=== PATIENT | male | born 2000 | race Asian ===

== ENCOUNTER 2021-01-26 10:43 | Inpatient (IN) ==
[2021-01-26 11:36] LABS: ABS Basophils 0.1 10^3/ul (0-0.2); ABS Eosinophils 0.1 10^3/ul (0-0.6); ABS Lymphocytes 2.6 10^3/ul (1.0-4.8); ABS Monocytes 0.4 10^3/ul (0-0.8); ABS Neutrophils 2.4 10^3/ul (1.5-7.7); Eosinophil % 1.9 %; Hematocrit 44 % (42-52); Hemoglobin 14.9 g/dL (14.0-18.0); Mean Corpuscular HGB Conc 34 g/dL (31-36); Mean Corpuscular Hemoglobin 27 pg (27-31); Mean Corpuscular Volume 79 fL (80-94); Mean Platelet Volume 8.3 fL (7.4-10.4); Platelet Count 228 10^3/uL (150-450); Red Blood Count 5.57 10^6 /uL (4.18-5.48); Red Cell Distribution Width 14 % (10-15); White Blood Count 5.5 10^3/uL (3.5-10.8)
[2021-01-26 11:52] LABS: ALT 13 U/L (7-52); Albumin 5.1 g/dL (3.2-5.2); Albumin/Globulin Ratio 2.1 (1-3); Alkaline Phosphatase 43 U/L (35-149); Blood Urea Nitrogen 13 mg/dL (6-24); CO2 Carbon Dioxide 29 mmol/L (22-32); Calcium 9.6 mg/dL (8.6-10.3); Chloride 103 mmol/L (101-111); Globulin 2.4 g/dL (2-4); Glucose 92 mg/dL (70-100); Sodium 138 mmol/L (135-145); Total Protein 7.5 g/dL (6.4-8.9)
[2021-01-26 12:03] LABS: Alcohol, S < 13 mg/dL (<13); Salicylate < 2.50 mg/dL (<30)
[2021-01-26 12:06] LABS: Acetaminophen < 15 mcg/mL
[2021-01-26 12:08] LABS: Urine Appearance Clear; Urine Bilirubin Negative (Negative); Urine Blood Negative (Negative); Urine Color Yellow; Urine Glucose Negative (Negative); Urine Ketones Negative (Negative); Urine Nitrite Negative (Negative); Urine Protein Negative (Negative); Urine Specific Gravity 1.027 (1.002-1.030); Urine Urobilinogen Negative (Negative)
[2021-01-26 12:18] LABS: TSH Ultra Thyroid Stim Horm 2.53 mcIU/mL (0.34-5.60)
[2021-01-26 12:29] LABS: Urine Benzodiazepine Screen None Detected (None Detect); Urine Cannabinoids Screen None Detected (None Detect); Urine Opiates Screen None Detected (None Detect)
[2021-01-26 12:53] LABS: Anion Gap 6 mmol/L (2-11); Potassium 4.2 mmol/L (3.5-5.0)
[2021-01-26 13:04] LABS: AST 18 U/L (13-39)
[2021-01-26 19:31] LABS: Rapid COVID-19 Molecular Undetected (Undetected)
[2021-01-26] MEDS ORDERED: Al Hydrox/Mg Hydrox/Simet LIQ 30 ML UDC PO PRN (21:59)
[2021-01-27 08:42] LABS: HDL Cholesterol 61.1 mg/dL
[2021-01-27] MEDS: Vitamin THERAPEUTIC TAB PO SCH (09:09)
[2021-01-28] MEDS ORDERED: Venlafaxine XR 75 mg ONE (08:36)
[2021-01-28] MEDS: Vitamin THERAPEUTIC TAB PO SCH (08:46)
[2021-01-28] MEDS ORDERED: Flu vaccine *QUAD* 2021-22* 0.5 ML SYRINGE IM ONE (09:00)
[2021-01-28] MEDS: Venlafaxine XR 75 mg PO SCH (09:05)
[2021-01-29] MEDS: Venlafaxine XR 75 mg PO SCH (09:17)
[2021-01-29] MEDS: Vitamin THERAPEUTIC TAB PO SCH (09:18)
[2021-01-30] MEDS: Vitamin THERAPEUTIC TAB PO SCH (09:00)
[2021-01-30] MEDS: Venlafaxine XR 75 mg PO SCH (09:00)
[2021-01-31] MEDS: Vitamin THERAPEUTIC TAB PO SCH (09:38)
[2021-02-01] MEDS: Vitamin THERAPEUTIC TAB PO SCH (09:34)
[2021-02-02] MEDS: Vitamin THERAPEUTIC TAB PO SCH (10:18)
[2021-02-03] MEDS: Vitamin THERAPEUTIC TAB PO SCH (09:57)
[2021-02-04] MEDS: Venlafaxine XR 75 mg PO SCH (10:50)
[2021-02-04] MEDS: Vitamin THERAPEUTIC TAB PO SCH (10:50)
[2021-02-05] MEDS: Venlafaxine XR 75 mg PO SCH (10:53)
[2021-02-05] MEDS: Vitamin THERAPEUTIC TAB PO SCH (10:53)
[2021-02-06] MEDS: Venlafaxine XR 75 mg PO SCH (09:56)
[2021-02-06] MEDS: Vitamin THERAPEUTIC TAB PO SCH (09:56)
[2021-02-07] MEDS: Venlafaxine XR 75 mg PO SCH (10:32)
[2021-02-07] MEDS: Vitamin THERAPEUTIC TAB PO SCH (10:33)
[2021-02-08] MEDS: Vitamin THERAPEUTIC TAB PO SCH (09:40)
[2021-02-09] MEDS: Vitamin THERAPEUTIC TAB PO SCH (11:00)
[2021-02-10] MEDS: Vitamin THERAPEUTIC TAB PO SCH (10:00)
[2021-02-11] MEDS: Vitamin THERAPEUTIC TAB PO SCH (10:59)
[2021-02-12] MEDS: Vitamin THERAPEUTIC TAB PO SCH (09:17)
[2021-02-12 17:42] VITALS: BP 107/66
== END 2021-02-12 17:59 | disposition home or self-care (01) | DRG 751 ==
LOC: ED 10:43 → BSU 14:00
PROVIDERS: ADMIT Psychiatry & Neurology Psychiatry; ATTEND Psychiatry & Neurology Psychiatry